=== PATIENT | male | born 1945 | race African-American/Black ===

== ENCOUNTER 2019-03-03 15:26 | Emergency (ER) | payer MEDICARE, OTHER ==
[~2019-03-03] VITALS: Ht 177.8 cm; Wt 73.0 kg
[2019-03-03] MEDS ORDERED: SODIUM CHLORIDE 0.9% 1,000 ML IV ONE (15:51)
[2019-03-03 16:15] LABS: HEMATOCRIT. 37.4 % (42.0-52.0); HEMOGLOBIN. 12.6 g/dL (14.0-18.0); MEAN CORPUSCULAR HEMOGLOBIN 33.5 pg (28.0-32.0); MEAN CORPUSCULAR VOLUME 99.2 fL (80.0-94.0); MEAN PLATELET VOLUME 7.1 fl (7.4-10.4); PLATELET 207 x1000/uL (130-400); RED BLOOD CELL COUNT 3.77 mill/uL (4.7-6.1); RED CELL DISTRIBUTION WIDTH 13.7 % (11.6-14.6)
[2019-03-03 16:22] LABS: CHLORIDE 109 mEq/L (98-107)
[2019-03-03 16:26] LABS: INR 0.9; PROTHROMBIN TIME 9.4 sec (9.6-11.0)
[2019-03-03 16:48] LABS: PLATELET ESTIMATE NORMAL
[2019-03-03] MEDS ORDERED: ONDANSETRON HCL 4MG/2ML INJ IV STA (17:39)
[2019-03-03] MEDS ORDERED: MORPHINE SULFATE 4 MG/ML CPJ (NOT FOR IM USE) IV STA (17:39)
[2019-03-03 21:01] VITALS: BP 118/85
== END 2019-03-03 21:17 | disposition short-term general hospital (02) ==
LOC: ER 15:26 → EDBD 15:26 → ER 21:17
DX: S72.012A Unspecified intracapsular fracture of left femur, initial encounter for closed fracture (principal); R53.1 Weakness; R42 Dizziness and giddiness; I10 Essential (primary) hypertension; W18.39XA Other fall on same level, initial encounter; Y93.01 Activity, walking, marching and hiking; Y92.89 Other specified places as the place of occurrence of the external cause
CPT/HCPCS: 36415; 71045; 73502; 80053; 84484; 85025; 85610; 93005; 96361; 96374; 96375; 99285; J2270; J2405; J7030

== ENCOUNTER 2022-05-06 10:25 | Emergency (ER) | payer OTHER ==
[~2022-05-06] VITALS: Ht 175.3 cm; Wt 86.0 kg
[2022-05-06] MEDS ORDERED: SODIUM CHLORIDE 0.9% 1,000 ML IV ONE (10:45)
[2022-05-06 11:52] LABS: HEMATOCRIT. 40.3 % (42.0-52.0); HEMOGLOBIN. 13.2 g/dL (14.0-18.0); MEAN CORPUSCULAR HEMOGLOBIN 32.7 pg (28.0-32.0); MEAN CORPUSCULAR VOLUME 99.8 fL (80.0-94.0); MEAN PLATELET VOLUME 7.3 fl (7.4-10.4); PLATELET 268 x1000/uL (130-400); RED BLOOD CELL COUNT 4.04 mill/uL (4.7-6.1); RED CELL DISTRIBUTION WIDTH 14.5 % (11.6-14.6)
[2022-05-06 12:00] LABS: INR 0.9; PROTHROMBIN TIME 9.7 sec (9.6-11.0)
[2022-05-06 12:01] LABS: CHLORIDE 107 mEq/L (98-107)
[2022-05-06 12:32] LABS: PLATELET ESTIMATE NORMAL
[2022-05-06 12:54] LABS: ETHANOL BLOOD 254 mg/dL
[2022-05-06 13:02] LABS: CLARITY URINE CLEAR (CLEAR); COLOR URINE YELLOW (YELLOW); KETONES URINE NEGATIVE (NEGATIVE); LEUKOCYTE ESTERASE URINE TRACE (NEGATIVE); NITRITE URINE NEGATIVE (NEGATIVE); OCCULT BLOOD URINE TRACE (NEGATIVE); PH URINE 5.5 (4.5-8.0); PROTEIN URINE NEGATIVE (NEGATIVE); SPECIFIC GRAVITY URINE 1.015 (1.005-1.030); UROBILINOGEN URINE 0.2 E.U./dL (0.2-1.0)
[2022-05-06 13:28] LABS: *AMPHETAMINES SCREEN URINE NEGATIVE (NEGATIVE); *BARBITURATES SCREEN URINE NEGATIVE (NEGATIVE); *BENZODIAZEPINES SCREEN URINE NEGATIVE (NEGATIVE); *COCAINE SCREEN URINE NEGATIVE (NEGATIVE); CANNABINOID URINE SCREEN NEGATIVE (NEGATIVE); METHADONE URINE SCREEN NEGATIVE (NEGATIVE); OPIATES URINE SCREEN NEGATIVE (NEGATIVE); PHENCYCLIDINE URINE SCREEN NEGATIVE (NEGATIVE)
[2022-05-06 17:10] VITALS: BP 116/83
== END 2022-05-06 18:32 | disposition short-term general hospital (02) ==
LOC: ER 10:25 → CANBEDREQ 14:09 → ER 18:32
DX: S72.111A Displaced fracture of greater trochanter of right femur, initial encounter for closed fracture (principal); M97.01XA Periprosthetic fracture around internal prosthetic right hip joint, initial encounter; I25.2 Old myocardial infarction; Z20.822 Contact with and (suspected) exposure to COVID-19; I10 Essential (primary) hypertension; W01.0XXA Fall on same level from slipping, tripping and stumbling without subsequent striking against object, initial encounter; Y93.01 Activity, walking, marching and hiking; Y92.89 Other specified places as the place of occurrence of the external cause; Y99.8 Other external cause status
CPT/HCPCS: 36415; 71045; 73502; 73552; 80053; 80305; 80320; 81003; 82962; 83880; 84484; 85025; 85610; 86850; 86900; 86901; 87426; 93005; 99285; C9803; J7030; G0480